=== PATIENT | male | born 1985 | race Caucasian/White ===

== ENCOUNTER → 2024-10-05 | Outpatient (CLI) | payer SELFPAY ==
--- NOTE | 2024-10-05 11:28 | RAD_ITS ---
PROCEDURE: CHEST PA AND LATERAL REASON FOR EXAM: Dyspnea on exertion. TECHNIQUE: Frontal and lateral views of the chest. COMPARISON: None. FINDINGS: The heart size is normal. The mediastinal contour is unremarkable. The lungs are clear. The bones are unremarkable. RAD/Chest PA and Lateral IMPRESSION: No evidence of acute cardiopulmonary disease. Reading Location: [id number]
== END | disposition home or self-care (01) ==
PROVIDERS: PCP Family Medicine; Referring Provider Internal Medicine Cardiovascular Disease; Visit Provider Internal Medicine Cardiovascular Disease
DX: R06.09 Other forms of dyspnea (principal)
CPT/HCPCS: 71046

== ENCOUNTER → 2024-10-19 | Outpatient (CLI) | payer SELFPAY ==
--- NOTE | 2024-10-19 14:57 | ECHOD_ITS ---
Reason For Study Reason For Study: Dyspnea on exertion Procedure This was a 2D Doppler, Color Flow transthoracic echocardiogram. Exam performed in department. Left Ventricle Normal size and thickness. The left ventricular ejection fraction is 65 %. Normal diastololic function. Right Ventricle Normal right ventricle. Atria The left and right atria are normal. Mitral Valve Mild (1+) mitral valve insufficiency. Tricuspid Valve Trivial tricuspid valve insufficiency. Unable to estimate RV systolic pressure due to insufficient tricuspid regurgitant envelope. Aortic Valve Trisinus/trileaflet aortic valve. Pulmonic Valve The pulmonic valve is not well visualized. Great Vessels Normal-sized aortic root. Pericardium/Pleural No pericardial effusion. MMode/2D Measurements & Calculations LVIDd: 4.7 cm IVSd: 1.0 cm Ao root diam: 2.8 cm LVIDs: 2.9 cm LVPWd: 1.0 cm RVDd: 3.9 cm FS: 39.6 % LAV(MOD-bp): 37.5 ml LVAd ap4: 27.3 cm2 SV(MOD-sp4): 50.1 ml LAV(MOD-bp) Indexed: 18.0 ml/m2 LVLd ap4: 8.4 cm SI(MOD-sp4): 24.1 ml/m2 LAV(MOD-sp2): 33.0 ml EDV(MOD-sp4): 73.4 ml LAV(MOD-sp4): 40.0 ml EDV(sp4-el): 75.7 ml LVAs ap4: 13.8 cm2 LVLs ap4: 7.1 cm ESV(MOD-sp4): 23.3 ml ESV(sp4-el): 22.9 ml EF(MOD-sp4): 68.3 % EF(sp4-el): 69.8 % SV(sp4-el): 52.8 ml LA A4 area: 17.0 cm2 LA dimension(2D): 3.8 cm RA A4 area: 15.9 cm2 TAPSE: 2.1 cm Time Measurements MV dec time: 0.20 sec Doppler Measurements & Calculations MV E max kieran: 84.8 cm/sec Lat Peak E' Kieran: 15.8 cm/sec Med Peak E' Kieran: 12.5 cm/sec MV A max kieran: 56.6 cm/sec E/E' lat: 5.4 E/E' med: 6.8 MV E/A: 1.5 MV V2 max: 97.1 cm/sec MV P1/2t max kieran: 99.2 cm/sec Ao V2 max: 135.8 cm/sec MV max P.8 mmHg MV P1/2t: 75.2 msec Ao max P.4 mmHg MV V2 mean: 44.4 cm/sec Ao V2 mean: 86.6 cm/sec MV mean P.00 mmHg MV dec slope: 386.7 cm/sec2 Ao mean P.6 mmHg MV V2 VTI: 35.6 cm MVA(P1/2t): 2.9 cm2 Ao V2 VTI: 28.5 cm AV (velocity ratio): 0.85 LV V1 max: 111.7 cm/sec PA V2 max: 106.0 cm/sec TR max kieran: 189.5 cm/sec LV V1 max P.0 mmHg PA V2 mean: 71.2 cm/sec TR max P.4 mmHg LV V1 mean P.5 mmHg LV V1 mean: 72.5 cm/sec LV V1 VTI: 24.2 cm ECHO/Echo Complete Interpretation Summary The left ventricular ejection fraction is 65 %. Trivial to mild mitral valve insufficiency. Ordering Physician: Chaim^Kael^^^ Referring Physician: Kael Rucker Performed By: Nba Patel RCS
== END | disposition home or self-care (01) ==
LOC: CVS 14:54
PROVIDERS: PCP Family Medicine; Referring Provider Internal Medicine Cardiovascular Disease; Visit Provider Internal Medicine Cardiovascular Disease
DX: R06.09 Other forms of dyspnea (principal); I10 Essential (primary) hypertension
CPT/HCPCS: 93306

== ENCOUNTER → 2024-10-27 | Outpatient (CLI) | payer SELFPAY ==
--- NOTE | 2024-10-27 08:56 | STE_ITS ---
Reason For Study Reason For Study: DYSPNEA Stress Results Protocol: Jaden Protocol Maximum Predicted HR: 184 bpm Target HR: 156 bpm % Maximum Predicted HR: 97 % DurationHeart Rate Stage (mm:ss) (bpm) BP Comment BASELINE 52 110/82 STAGE 1 3:00 110 128/62 STAGE 2 3:00 137 130/70 STAGE 3 3:00 166 160/64 STAGE 4 1:00 179 / SOB NOTED RECOVERY 11 118/70 Stress Duration: 10:00 mm:ss Maximum Stress HR: 179 bpm Baseline Echocardiogram Findings Stress Echo Wall motion Data Resting WM Intermediate WM Stress WM Time Measurements MV dec time: 0.18 sec Doppler Measurements & Calculations MV E max flory: 82.9 cm/sec MV dec slope: 464.0 cm/sec2 TR max flory: 231.7 cm/sec MV A max flory: 62.6 cm/sec TR max P.5 mmHg MV E/A: 1.3 ECHO/Stress Test Echo w/o Contrast Interpretation Summary Report of stress echocardiogram; Indication; 38-year-old patient history of hyperlipidemia had symptoms of shortness of gabriele th on exertion. Treadmill protocol. Patient exercised according to standard Jaden protocol monitored by EKG heart r ate blood pressure Baseline echocardiogram was performed initially Following maximal stress at level 3 and achievement of heart rate of 179 exceed ing 88% of the predicted heart rate Repeat echocardiogram was performed. Interpretation of the stress echocardiogram Baseline blood pressure 110/82 mmHg Baseline heart rate is 52 mmHg. Patient exercised according to standard Jaden protocol and reach stage III. Wit h a blood pressure of 160/64, with a heart rate of 166 exceeded the target heart rate. No symptoms of chest pain. Interpretation of the EKG; Baseline EKG showed normal sinus rhythm. Following maximal stress at the stage III noted ST depression in the inferior l loly lead to 3 and aVF around 2 mm Which improved in recovery. Baseline echocardiogram normal LV systolic function Following maximal stress, appropriate LV contraction involving all segments ant erior inferior lateral and septal with cavity obliteration and no segmental wall motion. Conclusion and recommendation 1. ST depression noted in inferior leads at maximal stress with normal echocard iographic segment contraction 2. Correlate with the clinical presentation and consider further evaluation if he is symptomatic with left heart cath. At the EKG was abnormal Alternative will be to evaluate with treadmill Lexiscan sestamibi.??? Ordering Physician: Kael Rucker Referring Physician: Kael Rucker Performed By: Breann Go, BISHOP, RVT
== END | disposition home or self-care (01) ==
PROVIDERS: PCP Family Medicine; Referring Provider Internal Medicine Cardiovascular Disease; Visit Provider Internal Medicine Cardiovascular Disease
DX: R06.09 Other forms of dyspnea (principal); I10 Essential (primary) hypertension
CPT/HCPCS: 93017; 93350

== ENCOUNTER 2024-11-28 09:16 | Day surgery (SDC) | payer SELFPAY ==
[2024-11-13 16:18] LABS: Absolute Lymphocyte Count 1.98 X10^3/uL (0.83-4.51); Absolute Neutrophil Count 3.9 X10^3/uL (2.0-7.7); Basophil# 0.01 X10^3/uL; Basophil% 0.2 % (0-1); Eosinophil# 0.05 X10^3/uL; Eosinophils% 0.8 % (0-5); Hematocrit 43.3 % (40-54); Hemoglobin 14.7 g/dL (13.0-16.5); Lymphocyte # 1.98 X10^3/ul (0.83-4.51); Lymphocyte % 30.7 % (19-41); Mean Corp Hgb Conc 33.9 g/dL (32-36); Mean Corpuscular Hgb 27.6 pg (27.0-32.0); Mean Corpuscular Volume 81.4 fL (80-94); Mean Platelet Vol. 8.5 fl (6.2-12.0); Monocyte# 0.41 X10^3/uL; Monocyte% 6.4 % (0-10); NRBC Flagged by Analyzer 0 % (0-5); Neutrophil # 3.92 X10^3/uL (2.7-7.7); Neutrophil % 60.8 % (47-70); Platelet Count 395 K/mm3 (150-450); RBC Distribution Width CV 12.3 % (11.6-14.6); RBC Distribution Width SD 36.6 fl (35.1-43.9); Red Blood Count 5.32 M/mm3 (4.6-6.2); White Blood Count 6.4 K/mm3 (4.4-11.0)
[2024-11-13 16:54] LABS: International Normalized Ratio 0.9; Prothrombin Time (Protime)PT. 12.7 SECONDS (11.7-14.9)
[2024-11-13 18:51] LABS: Anion Gap 13 (5-15); BUN 13 mg/dL (4-19); BUN/Creat Ratio 10.9 RATIO (10-20); Calcium,Total 9.6 mg/dL (7.6-11.0); Carbon Dioxide 24.8 mmol/L (21.0-32.0); Chloride 103 mmol/L (98-108); Creatinine, Serum 1.17 mg/dL (0.70-1.20); EST Glomerular Filtration Rate 82 (>60); Glucose 90 mg/dL (70-99); Potassium 4.3 mmol/L (3.3-5.1); Sodium Level 141 mmol/L (133-145)
[2024-11-27 09:51] VITALS: BMI 29.9
--- NOTE | 2024-11-27 20:27 | PCM.HP.BLA ---
History and Physical Date of Admission: 11/28/24 This gentleman has recently been diagnosed with dyslipidemia. According to him, he has had a respiratory illness last August. Since that time, he has been feeling short of breath with moderate to strenuous exertion. Denies orthopnea. No PND. No ankle edema. Occasional epigastric discomfort which is mostly after eating a full meal. No exertional component. Intake Vital Signs: See EMR Intake Visit Reasons: [facility] [employer] Required: No Accompanied by: Is patient in pain?: No Allergies Environmental Allergies: Uncoded (seasonal) Allergy (Mild, Verified 10/05/24 10:14) itching, sneezing, congestion Medications: See EMR Have you fallen in the past year?: No PFSH Medical History Essential hypertension Hyperlipidemia Family History (Updated 10/05/24 @ 10:18 by Delvin Cohn RN) Grandmother CancerFather Hyperlipidemia Social History (Updated 10/05/24 @ 10:18 by Delvin Cohn RN) Smoking Status: Never smoker alcohol intake: never caffeine: Yes Type: coffee Number of servings: 3 ROS Const Const: Negative for fatigue, weakness, headache(s) or weight gain ENT ENT: Negative for headache(s), dizziness, Nosebleed/epistaxis or balance problems Cardio Chest Pain: Yes (occasional) Frequency: monthly Character: tightness Location: epigastric Duration: hours Exacerbation: eating Palpitations: No Edema: None Muscle aches with walking: None Resp Respiratory: Positive for SOB with activity (worsened this winter; reported URI and lingering SOB); Negative for SOB at rest or SOB orthopnea\SOB lying down GI GI: Positive for nausea (occasional in AM) and heartburn (Prilosec OTC); Negative vomiting Musc Musc: Negative for muscle aches/ myalgia, muscle weakness, joint pain or balance problems Neuro Neuro: Negative for dizziness, lightheadedness, near syncope, syncope, headache(s) or weakness Endo Endo: Negative for fatigue Cardiology Exam Const Appearance: comfortable and no acute distress Nutritional Appearance: well nourished Neck Neck: no JVD Carotids: Negative bruit Chest Auscultation: Bilateral: Clear to Auscultation Cardio Rate: regular rate Rhythm: regular rhythm Heart sounds: S1 normal and S2 normal Neuro General: patient alert, patient awake and patient oriented x3 Extremities Lower Extremity Edema: None: Bilateral Assessment and Plan Assessment and Plan (1) Dyspnea on exertion: Status: Acute Plan: He had a stress echocardiogram on 10/27/2024 that showed abnormal ECG. He will proceed with [facility] to assess further. Depending on results, further recommendation will be made. (2) Hyperlipidemia: Status: Chronic Plan: On rosuvastatin.
--- NOTE | 2024-11-28 11:59 | CL.D_ITS ---
Patient Name: ASUNCION FU Study Date: 11/28/2024 Performing: Kael Rucker MD Ht: 175.26 inches 445.1604 cm : 1985 Wt: 92.08 lbs 41.767 kg Age: 39 Gender: male BSA: 2.92 PROCEDURE(S) PERFORMED DC02-([id number])[facility] CLINICAL PROFILE AND INDICATIONS Indications: Suspected CAD Heart Failure: None Stress/Imaging Stress Echocardiogram: Yes Result: Positive Intermediate RiskStress Echocardiogram: Positive Intermediate Risk CAD Presentations: Symptom unlikely to be ischemic. CONCLUSIONS No angiographic CAD RECOMMENDATIONS Risk factor modification DESCRIPTION OF PROCEDURE The patient arrived to the procedure lab. The risks and benefits of the procedure as well as a full description of our services here and current unavailability of surgical backup were fully explained to the patient and/or their significant other prior to the catheterization. The Timeout was completed, verifying the correct patient and procedure. The patient's procedural site was prepped and draped in the usual fashion. Local anesthetic was given subcutaneously to right radial region with Lidocaine 2%. Using a modified Seldinger technique, arterial access was obtained via the right radial artery, a 6Fr sheath was inserted. Right Coronary Artery selective angiography was then performed in multiple views using a 5 Fr. 4.0 [place] catheter. Left Coronary Artery selective angiography was performed in multiple views using a 5 Fr. 4.0 [place] catheter.The arterial sheath was pulled and a TR Band was applied for hemostasis w/ 9ml air CORONARY ANGIOGRAPHY DOMINANCE: Right Dominant LEFT MAIN: Angiographically normal LEFT ANTERIOR DESCENDING ARTERY: Angiographically normal CIRCUMFLEX ARTERY: Angiographically normal RIGHT CORONARY ARTERY: Angiographically normal COMPLICATIONS No Complications PROCEDURE MEDICATIONS Versed 1 mg IV Fentanyl 50 mcg IV Oxygen: 2 L/min via nasal cannula Heparin given IA 11/28/2024 11:44:02 Verapamil 2.5mg, Ntg 200mcgs, 2000 units of Heparin given IA 11/28/2024 11:44:02 IV Bolus: .9 NaCl ml total 11/28/2024 11:49:26 SUMMARY OF HEMODYNAMIC DATA Time AIR REST ECG 09:56:52 AO 111/75 (90) SA 11:50:01 Signed By Kael Rucker MD On 11/28/2024 11:58:07 Kael Rucker MD
== END 2024-11-28 13:38 | disposition home or self-care (01) ==
PROVIDERS: PCP Family Medicine; Referring Provider Internal Medicine Cardiovascular Disease; Visit Provider Internal Medicine Cardiovascular Disease
DX: R06.02 Shortness of breath (principal); I10 Essential (primary) hypertension; E78.5 Hyperlipidemia, unspecified; R11.0 Nausea
CPT/HCPCS: 36415; 80048; 85025; 85610; 93454; 99152; 99153; Q9967; C1769; C1894